=== PATIENT | male | born 1970 | race Caucasian/White ===

== ENCOUNTER 2018-08-07 07:13 | Inpatient (IN) | payer OTHER ==
[~2018-08-07] VITALS: Ht 193 cm; Wt 96.2 kg
[~2018-08-07 07:13] MED LIST: ASPIR 8181 MG PO; HUMULIN R100 UNIT/2 SQ; LIPITOR20 MG PO; LISINOPRIL10 MG PO; PLAVIX75 MG PO
[2018-08-07] MEDS ORDERED: INSULIN REGULAR, HUMAN 100 UNIT/1 ML 3ML VIAL ONE (07:55)
[2018-08-07 08:08] LABS: BASOPHILS % 0.3 % (0.0-1.0); EOSINOPHILS # (AUTO) 0.1 (0.0-0.4); HEMATOCRIT 41.5 % (38.2-49.6); HEMOGLOBIN 14.4 g/dL (14.0-18.0); LYMPHOCYTES # (AUTO) 1.5 (1.0-3.2); LYMPHOCYTES % 13.8 % (18.0-39.1); MEAN CORPUSCULAR HEMOGLOBIN 30.4 pg (28-32); MEAN CORPUSCULAR HGB CONC 34.7 g/dL (31-35); MEAN CORPUSCULAR VOLUME 87.7 fL (81-99); MONOCYTES # (AUTO) 1.1 (0.2-0.8); NEUTROPHILS # (AUTO) 8.2 (2.1-6.9); NEUTROPHILS % 74.5 % (38.7-80.0); PLATELET COUNT 280 x10e3/uL (140-360); RED BLOOD COUNT 4.73 x10e6/uL (4.3-5.7)
[2018-08-07 08:31] LABS: ANION GAP 15.7 mmol/L (8-16); BLOOD UREA NITROGEN 16 mg/dL (7-26); BUN/CREATININE RATIO 21 (6-25); CALCIUM 9.1 mg/dL (8.4-10.2); CARBON DIOXIDE 20 mmol/L (22-29); CHLORIDE 102 mmol/L (98-107); CREATININE, SERUM 0.75 mg/dL (0.72-1.25); EST GLOMERULAR FILTRATION RATE > 60 ML/MIN (60-); GLUCOSE 201 mg/dL (74-118); POTASSIUM 3.7 mmol/L (3.5-5.1); SODIUM 134 mmol/L (136-145)
[2018-08-07] MEDS ORDERED: HYDROGEN PEROXIDE 120 ML BTL ONE (09:23)
[2018-08-07] MEDS ORDERED: CLINDAMYCIN 600MG / 50ML 50 ML IV ONE (09:29)
[2018-08-07] MEDS ORDERED: SODIUM CHLORIDE 0.9% 1000ML 1,000 ML IV SCH (10:16)
[2018-08-07] MEDS ORDERED: ONDANSETRON HCL INJ 2 MG/ML VIAL IV PRN (10:30)
[2018-08-07] MEDS ORDERED: HYDROCODONE/APAP 7.5MG-325MG 1 EA TAB PO PRN (10:30)
[2018-08-07] MEDS ORDERED: HYDROMORPHONE 1MG/1ML INJ IV PRN (10:30)
--- NOTE | 2018-08-07 11:00 | NUR ---
RECD PT FROM RECOVERY VIA STRETCHER AAOX3,PAIN LEVEL 3 TO RT BUTTOCKS,DRSG CD&I.IV INFUSING TO LT HAND 22 GAUGE,SCDS ON ,
--- NOTE | 2018-08-07 11:36 | Operative Report ---
DATE OF PROCEDURE: August 07, 2018 PREOPERATIVE DIAGNOSES 1. Right gluteal abscess. 2. Diabetes mellitus. POSTOPERATIVE DIAGNOSES 1. Right gluteal abscess. 2. Diabetes mellitus. PROCEDURE PERFORMED: Incision and drainage of right gluteal abscess. ESTIMATED BLOOD LOSS: Minimal. DRAINS: 1/4-inch [place] drain. COMPLICATIONS: None. INDICATIONS AND FINDINGS: The patient is a 48-year-old, diabetic male admitted for incision and drainage of a gluteal abscess. The patient noted swelling for several days. He applied some warm compressions without resolution. INTRAOPERATIVE FINDINGS: The patient had a 6 to 7 cm abscess of the right upper medial gluteal area with drainage of foul-smelling, blood-stained pus. Aerobic and anaerobic cultures were taken. The abscess was confined to the gluteus. There was no evidence of communication with the anal region indicating an anorectal origin of the abscess. DESCRIPTION OF PROCEDURE: With the patient lying on the operating table in the supine position, after administration of general endotracheal anesthesia, he was prepped and draped for incision and drainage of the right gluteal area. The patient was placed in the left lateral decubitus position, prepped and draped. An elliptical incision was made in the mid portion of the skin overlying the most fluctuant area of the abscess and the cavity entered. Foul smelling, blood-tinged pus was obtained and drained. After we did that, we explored the cavity and there was no evidence of anorectal origin or communication such as a fistula. We copiously irrigated the cavity with saline and peroxide and then placed a 1/4-inch [place] drain through a stab wound inferior to the previous one in a dependent location and secured it to itself with 3-0 silk and then packed the cavity with 1-inch iodoform gauze. Sterile dressing was applied. The patient tolerated the procedure well and was taken to the recovery room in stable condition. Job#: [id number]
[2018-08-07 11:43] VITALS: BP 118/57
[2018-08-07] MEDS ORDERED: CLINDAMYCIN 600MG / 50ML 50 ML IV SCH (12:00)
[2018-08-07] MEDS: LEVOFLOXACIN 500MG/D5W 100ML 100 ML IV SCH (12:06)
--- NOTE | 2018-08-07 14:20 | NUR ---
Visit made by the Spiritual Care Department Pastoral Visitor, Loreto Bahena. PV provided pastoral presence, prayer, hospitality, and supportive listening. Pastoral Visitor informed pt/family of the scope of Manager Android Services and availability. HAROON BRODERICK Video News Editor Spiritual Care Department O: [phone] Pager: [phone] ([phone] number calling from)
[2018-08-07 15:53] VITALS: BP 134/61
[2018-08-07] MEDS ORDERED: DEXTROSE 50% SYRINGE 50 ML IV PRN (16:15)
[2018-08-07] MEDS: CLINDAMYCIN 600MG / 50ML 50 ML IV SCH ×2 (16:20→21:43)
[2018-08-07] MEDS: INSULIN LISPRO 100 UNIT/1 ML 3ML VIAL SQ SCH ×2 (16:30→21:45)
--- NOTE | 2018-08-07 16:31 | Consultation ---
DATE OF CONSULTATION: August 07, 2018 REASON FOR CONSULTATION: Medical management. HISTORY OF PRESENT ILLNESS: This is a 48-year-old white man who was admitted to [facility] with a right gluteal abscess. The patient was seen by general surgeon, namely Dr. Sami Lakhani, who performed successful incision and drainage of the right gluteal abscess. The drainage was malodorous according to the surgeon. The patient states he has had the abscess on his buttock for at least 6 days. The patient denied any fever or chills, but stated he did not feel well. Blood work done today revealed a white blood cell count of 11,000 with 74% segmented neutrophils. The patient's BUN and creatinine was 16 and 0.75 respectively. The patient's hemoglobin A1c in the emergency room was 11.8 g/dL. The patient admits not taking any medications, including the Tresiva insulin that I prescribed for him a year ago. REVIEW OF SYSTEMS GENERAL: The patient states his weight has been stable. No fever or chills. HEENT: No headaches. No visual changes. CARDIOVASCULAR/RESPIRATORY: The patient states he has a chronic cough. No chest pain or tightness. GI: No nausea, vomiting, diarrhea, or constipation. : States he does urinate frequently. NEUROMUSCULAR: The patient states he had a right buttock abscess last week. ALLERGIES: PENICILLIN. MEDICATIONS: None. SURGICAL HISTORY 1. Vasectomy. 2. 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 3. Arterial stent placement in the bilateral lower extremities. FAMILY HISTORY: Father had diabetes mellitus, but of lung cancer. SOCIAL HISTORY: This man is . He lives with his . He is a heavy tobacco smoker. The patient denies any alcohol use. He is employed as a professor computer science. PHYSICAL EXAMINATION GENERAL: He is awake, alert and looks in distress. Very pleasant and cooperative with exam. He looks older than his stated age. VITALS: Blood pressure is 118/57, pulse 78, respiratory rate 18, temperature 98.6, oxygen saturation 97% on room air. INTEGUMENT: Skin is warm and dry. No pallor or diaphoresis appreciated. HEENT: Anicteric sclerae. Moist mucous membranes. NECK: Supple. CARDIOVASCULAR: Distant heart sounds. Regular rate and rhythm. LUNGS: No rales. No rhonchi or wheezes. ABDOMEN: Benign. EXTREMITIES: The right buttock is dressed. No edema or deformity. NEUROLOGIC: Intact. IMPRESSION 1. Right gluteal abscess. 2. Status post right gluteal abscess incision and drainage. 3. Type 2 diabetes mellitus, uncontrolled. 4. Peripheral arterial disease. 5. Tobacco use. 6. Hyperlipidemia. PLAN 1. Wound care to the right gluteal incised abscess. 2. Follow wound cultures. 3. Intravenous antibiotics. 4. Glucose control. 5. Highly recommend absolute tobacco cessation. I spent 40 minutes in the care of this patient. Job#: [id number] [place]
--- NOTE | 2018-08-07 17:36 | NUR ---
pt up in bed ,denies pain no distress noted,drsg to buttocks cd&i
[2018-08-07] MEDS: HYDROMORPHONE 2MG/ML 2 MG/ML ML IV PRN ×2 (17:45→21:50)
[2018-08-07] MEDS: NICOTINE 21 MG/EA PATCH TOP SCH (19:00)
--- NOTE | 2018-08-07 19:00 | NUR ---
Patient visited in room during nursing rounds. Patient alert and oriented x3. S/P Incision and drainage on right buttock abscess. Surgical dressing with silk tape covering surgical site appearing clean and dry. Piedad drain in place covered by dressing. Nicoderm patch in place. Call valerio within reach. Will monitor closely.
[2018-08-07] MEDS ORDERED: FENTANYL CITRATE/PF 100MCG/2 ML INJ ONE (19:06)
[2018-08-07] MEDS ORDERED: MIDAZOLAM HCL 2 MG/2 ML VIAL ONE (19:06)
[2018-08-07] MEDS ORDERED: PROPOFOL IV EMULSION 10 MG/ML 20 ML VIAL ONE (19:26)
[2018-08-07] MEDS ORDERED: DEXAMETHASONE SOD PHOS INJ 4 MG/ML VIAL ONE (19:26)
[2018-08-07] MEDS ORDERED: SEVOFLURANE INHAL SOLN 250 ML PEN BTL ONE (19:26)
[2018-08-07] MEDS ORDERED: ONDANSETRON HCL INJ 2 MG/ML VIAL ONE (19:26)
[2018-08-07] MEDS ORDERED: LIDOCAINE HCL 2% LOCAL INJ 5 ML SDV VIAL INJ ONE (19:26)
[2018-08-07 20:00] VITALS: BP 117/56
[2018-08-07] MEDS: INSULIN DETEMIR 100 UNIT/ML PEN SQ SCH (21:46)
[2018-08-08] VITALS (7 sets, daily range): BP systolic 122–148; BP diastolic 58–71
[2018-08-08] MEDS: CLINDAMYCIN 600MG / 50ML 50 ML IV SCH ×4 (02:44→21:39)
--- NOTE | 2018-08-08 05:01 | NUR ---
Patient sleeping at this time. IV saline locked. No c/o pain or discomfort at this time. Will continue to monitor.
[2018-08-08 05:35] LABS: BASOPHILS # (AUTO) 0.1 (0.0-0.1); BASOPHILS % 0.7 % (0.0-1.0); EOSINOPHILS # (AUTO) 0.3 (0.0-0.4); EOSINOPHILS % 3.5 % (0.0-6.0); HEMATOCRIT 37.2 % (38.2-49.6); HEMOGLOBIN 12.7 g/dL (14.0-18.0); LYMPHOCYTES # (AUTO) 1.8 (1.0-3.2); MEAN CORPUSCULAR HEMOGLOBIN 30.2 pg (28-32); MEAN CORPUSCULAR HGB CONC 34.1 g/dL (31-35); MEAN CORPUSCULAR VOLUME 88.6 fL (81-99); MONOCYTES # (AUTO) 0.9 (0.2-0.8); MONOCYTES % 11.8 % (4.4-11.3); NEUTROPHILS # (AUTO) 4.2 (2.1-6.9); NEUTROPHILS % 58.4 % (38.7-80.0); PLATELET COUNT 249 x10e3/uL (140-360); RED CELL DISTRIBUTION WIDTH 12.1 % (11.7-14.4)
[2018-08-08 05:51] LABS: ALANINE AMINOTRANSFERASE 9 IU/L (0-55); ALBUMIN 2.4 g/dL (3.5-5.0); ALBUMIN/GLOBULIN RATIO 0.7 (0.8-2.0); ALKALINE PHOSPHATASE 54 IU/L (40-150); ANION GAP 11.4 mmol/L (8-16); BLOOD UREA NITROGEN 14 mg/dL (7-26); BUN/CREATININE RATIO 23 (6-25); CALCIUM 7.9 mg/dL (8.4-10.2); CARBON DIOXIDE 24 mmol/L (22-29); CHLORIDE 101 mmol/L (98-107); CHOL/HDL RATIO 5.7 (3.9-4.7); CHOLESTEROL 131 MD/DL (0-199); CREATININE, SERUM 0.61 mg/dL (0.72-1.25); EST GLOMERULAR FILTRATION RATE > 60 ML/MIN (60-); GLUCOSE 137 mg/dL (74-118); HDL CHOLESTEROL 23 MG/DL (40-60); LDL CHOLESTEROL 86 MG/DL (60-130); POTASSIUM 3.4 mmol/L (3.5-5.1); SODIUM 133 mmol/L (136-145); TRIGLYCERIDES 111 MG/DL (0-149)
--- NOTE | 2018-08-08 06:48 | Diagnostic Imaging Report ---
EXAM: CHEST 2 VIEWS, PA and lateral INDICATION: Smoker COMPARISON: None FINDINGS: LINES/TUBES: None LUNGS: No consolidations or edema. Stable oval lucency in the right upper lateral chest. PLEURA: No effusions or pneumothorax. HEART AND MEDIASTINUM: Normal size and contour. BONES AND SOFT TISSUES: No acute findings. IMPRESSION: No acute thoracic abnormality. Signed by: Dr. Faith Russo M.D. on 08/08/2018 6:45 AM
[2018-08-08] MEDS: INSULIN LISPRO 100 UNIT/1 ML 3ML VIAL SQ SCH ×4 (07:30→21:40)
--- NOTE | 2018-08-08 08:09 | Progress Note ---
DATE: August 08, 2018 SUBJECTIVE: The patient feels fine. The right gluteal pain is significantly decreased after the incision and drainage was done. Reports no chills. OBJECTIVE VITALS: The patient is afebrile. Vital signs are stable. LABORATORY: Reveals a white count now normal at 7.23. Blood sugar today is 137. ASSESSMENT 1. Status post incision and drainage of right large gluteal abscess. 2. Diabetes. PLAN: Continue present care of his diabetes. Continue intravenous antibiotics. Check cultures results when available. Job#: [id number] XENIA ERNST
[2018-08-08] MEDS: NICOTINE 21 MG/EA PATCH TOP SCH (08:49)
[2018-08-08] MEDS: HYDROMORPHONE 2MG/ML 2 MG/ML ML IV PRN (08:50)
[2018-08-08] MEDS ORDERED: POTASSIUM CHLORIDE 10MEQ EA PO ONE (09:15)
[2018-08-08] MEDS: LEVOFLOXACIN 500MG/D5W 100ML 100 ML IV SCH (10:14)
[2018-08-08] MEDS: METFORMIN HCL 500 MG TAB PO SCH (16:43)
--- NOTE | 2018-08-08 19:17 | NUR ---
PATIENT IS IN STABLE CONDITION WITH NO S/S OF RESPIRATORY DISTRESS. NO PAIN VOICED. CALL LIGHT IS WITHIN REACH, INSTRUCTED TO CALL FOR ASSISTANCE NEEDED. REPORT GIVEN TO ONCOMING NURSE.
--- NOTE | 2018-08-08 19:20 | NUR ---
PT IS RESTING IN BED. NO RESPIRATORY DISTRESS NOTED. BED IN LOWEST POSITION, LOCKED, AND CALL LIGHT WITHIN REACH. WILL CONTINUE TO MONITOR.
[2018-08-08] MEDS: INSULIN DETEMIR 100 UNIT/ML PEN SQ SCH (21:40)
[2018-08-09] VITALS (8 sets, daily range): BP systolic 122–142; BP diastolic 64–71
[2018-08-09] MEDS: CLINDAMYCIN 600MG / 50ML 50 ML IV SCH ×4 (02:04→21:20)
[2018-08-09 05:47] LABS: BASOPHILS # (AUTO) 0.1 (0.0-0.1); BASOPHILS % 1.1 % (0.0-1.0); EOSINOPHILS # (AUTO) 0.3 (0.0-0.4); EOSINOPHILS % 5.4 % (0.0-6.0); HEMATOCRIT 41.1 % (38.2-49.6); LYMPHOCYTES # (AUTO) 1.9 (1.0-3.2); LYMPHOCYTES % 35.6 % (18.0-39.1); MEAN CORPUSCULAR HGB CONC 34.1 g/dL (31-35); MONOCYTES # (AUTO) 0.6 (0.2-0.8); MONOCYTES % 10.8 % (4.4-11.3); NEUTROPHILS # (AUTO) 2.5 (2.1-6.9); NEUTROPHILS % 46.4 % (38.7-80.0); PLATELET COUNT 305 x10e3/uL (140-360); RED BLOOD COUNT 4.67 x10e6/uL (4.3-5.7); RED CELL DISTRIBUTION WIDTH 12.1 % (11.7-14.4)
[2018-08-09 06:08] LABS: ALANINE AMINOTRANSFERASE 13 IU/L (0-55); ALBUMIN 2.7 g/dL (3.5-5.0); ALBUMIN/GLOBULIN RATIO 0.8 (0.8-2.0); ALKALINE PHOSPHATASE 53 IU/L (40-150); ANION GAP 10.9 mmol/L (8-16); BLOOD UREA NITROGEN 10 mg/dL (7-26); BUN/CREATININE RATIO 15 (6-25); CALCIUM 9.2 mg/dL (8.4-10.2); CARBON DIOXIDE 24 mmol/L (22-29); CHLORIDE 102 mmol/L (98-107); CREATININE, SERUM 0.67 mg/dL (0.72-1.25); EST GLOMERULAR FILTRATION RATE > 60 ML/MIN (60-); GLUCOSE 127 mg/dL (74-118); POTASSIUM 3.9 mmol/L (3.5-5.1); SODIUM 133 mmol/L (136-145)
--- NOTE | 2018-08-09 07:06 | NUR ---
PATIENT IS ALERT AND IN STABLE CONDITION WITH NO S/S OF RESPIRATORY DISTRESS. NO PAIN VOICED. DRESSING TO RIGHT BUTTOCK AREA IS DRY AND INTACT. CALL LIGHT IS WITHIN REACH, PATIENT INSTRUCTED TO CALL FOR ASSISTANCE NEEDED.
[2018-08-09] MEDS: INSULIN LISPRO 100 UNIT/1 ML 3ML VIAL SQ SCH ×4 (07:30→21:20)
[2018-08-09] MEDS: NICOTINE 21 MG/EA PATCH TOP SCH (08:55)
[2018-08-09] MEDS: METFORMIN HCL 500 MG TAB PO SCH ×2 (09:27→17:02)
[2018-08-09] MEDS: LEVOFLOXACIN 500MG/D5W 100ML 100 ML IV SCH (10:36)
[2018-08-09] MEDS: HYDROMORPHONE 2MG/ML 2 MG/ML ML IV PRN (13:03)
--- NOTE | 2018-08-09 15:16 | NUR ---
IV ANTIBIOTIC INFUSING; PATIENT COMPLETED FIRST SITZ BATH- DRAIN PRESENT, DRY DRESSING AND FOAM TAPE APPLIED.
--- NOTE | 2018-08-09 16:57 | NUR ---
Nutrition Screen Note RD Recommendation for Physician: -Continue ADA diet as ordered -RD provided education on diabetic diet on 08/09. Rec pt to f/u with outpatient CDE for further education and monitoring Plan of Care: RD following, monitoring for tolerance and adequacy, education Nutrition reason for involvement: MD Consult diabetes education Primary Diagnose(s): right gluteal abscess s/p I&D PMH: DM, HLD, PAD Ht: 76in Wt: 210lb BMI: 25.6kg/m2 IBW: 202lb RD Assessment: (08/09) Chart reviewed. Labs and meds reviewed. 48yo M, who is admitted for right gluteal abscess. HbA1c at 11.8%. Tobacco smoker. 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 No GI complains noted. No chewing or swallowing difficulty. RD consulted for diabetic diet education. See below. Current Diet: ADA diet Malnutrition Evaluation (08/09/2018) The patient does not meet criteria for a specified degree of malnutrition at this time. Will re-evaluate at follow-up as appropriate. Diet Education Needs Assessment: Diet education indicated, pt and are agreeable with plan. Nutrition Education Learner(s): pt, Barriers: none Cultural/Language Modifications: No cultural/language modifications noted. Readiness: eager, motivated Method: explanation/ discussion, handout Topics: DM diet (carbohydrate counting, label reading, serving sizes) Understanding/Compliance: good compliance expected, needs reinforcement with outpatient diabetes management, all questions have been answered. Nutrition Care Level: low Signed: Cuca Nazario, MS, RD, LD
--- NOTE | 2018-08-09 17:43 | NUR ---
CASE MANAGEMENT INITIAL ASSESSMENT Plastics Design Engineer to bedside to discuss plan of care with patient/family. CM/SW role and care transitions discussed. Anticipated discharge plan discussed along with duration of care. CM/SW discussed patients right to make decisions in care. CM/SW work hours given. Patient lives: Admit/Transfer: OR POA/Emergency contact: RAGINI JENNIFER [phone] Current/Previous Home Health: N/A PCP/Follow-up Care: DR MERAZ Current/Previous DME: GLU[facility]ER Other Services: NONE Employment Status: WORKS [employer] Areas of Concerns: NONE Referral Needs: N/A Education Needs: WOUND CARE UPON DISCHARGE IMM/TAMAYO given and signed (if applicable): N/A Goal for discharge:HOME AND RETURN TO WORK SOON POSSIBLE CM/SW left business card at the bedside with contact information. Name and number was also written on the patients whiteboard. Patient verbalized understanding of discussion. CM will follow-up with ongoing discharge and transition of care needs.
--- NOTE | 2018-08-09 19:07 | NUR ---
PATIENT IS IN STABLE CONDITION WITH NO S/S OF RESPIRATORY DISTRESS- NO PAIN VOICED. DRESSING TO RIGHT BUTTOCK IS DRY/INTACT AND MESH PANTIES APPLIED. CALL LIGHT IS WITHIN REACH, INSTRUCTED TO CALL FOR ASSISTANCE NEEDED. REPORT GIVEN TO ONCOMING NURSE.
--- NOTE | 2018-08-09 19:11 | NUR ---
PT IS RESTING IN BED. NO RESPIRATORY DISTRESS NOTED. BED IN LOWEST POSITION, LOCKED, AND CALL LIGHT WITHIN REACH. WILL CONTINUE TO MONITOR.
[2018-08-09] MEDS: INSULIN DETEMIR 100 UNIT/ML PEN SQ SCH (21:20)
--- NOTE | 2018-08-09 21:20 | NUR ---
PT REFUSE HIS SITZ BATH. PT STATES THAT HE WILL DO ONE TOMORROW. WILL CONTINUE.
[2018-08-10] VITALS (7 sets, daily range): BP systolic 127–149; BP diastolic 63–82
[2018-08-10] MEDS: CLINDAMYCIN 600MG / 50ML 50 ML IV SCH ×4 (03:11→22:38)
[2018-08-10 06:34] LABS: ALANINE AMINOTRANSFERASE 16 IU/L (0-55); ALBUMIN/GLOBULIN RATIO 0.7 (0.8-2.0); ALKALINE PHOSPHATASE 61 IU/L (40-150); ANION GAP 10.5 mmol/L (8-16); BLOOD UREA NITROGEN 11 mg/dL (7-26); BUN/CREATININE RATIO 14 (6-25); CALCIUM 9.9 mg/dL (8.4-10.2); CARBON DIOXIDE 27 mmol/L (22-29); CHLORIDE 101 mmol/L (98-107); CREATININE, SERUM 0.78 mg/dL (0.72-1.25); EST GLOMERULAR FILTRATION RATE > 60 ML/MIN (60-); GLUCOSE 152 mg/dL (74-118); POTASSIUM 4.5 mmol/L (3.5-5.1); SODIUM 134 mmol/L (136-145)
--- NOTE | 2018-08-10 07:30 | NUR ---
PT UP IN BED NO DISTRESS NOTED ,DENIES PAIN.DRSG TO BUTTOCKS CD&I
[2018-08-10] MEDS: INSULIN LISPRO 100 UNIT/1 ML 3ML VIAL SQ SCH ×4 (08:44→22:40)
[2018-08-10] MEDS: METFORMIN HCL 500 MG TAB PO SCH ×2 (08:44→16:36)
[2018-08-10] MEDS: LEVOFLOXACIN 500MG/D5W 100ML 100 ML IV SCH (10:30)
[2018-08-10] MEDS: NICOTINE 21 MG/EA PATCH TOP SCH (11:44)
--- NOTE | 2018-08-10 13:00 | NUR ---
PT UP AMBULATING IN [place] DENIES PAIN.
--- NOTE | 2018-08-10 18:05 | NUR ---
PT UP AMBULATING IN [place] WITH AMILY ,DENIES PAIN ,NO DSITRESS NTOED.
[2018-08-10] MEDS: INSULIN DETEMIR 100 UNIT/ML PEN SQ SCH (22:40)
[2018-08-11] VITALS: BP 135/62
--- NOTE | 2018-08-11 02:28 | NUR ---
Patient in bed with HOB slightly elevated. AAO x 4. No SOB noted. Bed at low position and locked. Call light within reach. Patient denies of any pain. No acute distress noted. Patient in stable condition, will continue to monitor.
[2018-08-11] MEDS: CLINDAMYCIN 600MG / 50ML 50 ML IV SCH ×2 (03:38→08:18)
[2018-08-11 04:00] VITALS: BP 123/64
[2018-08-11 07:23] VITALS: BP 131/69
[2018-08-11 07:30] VITALS: BP 131/69
[2018-08-11] MEDS: INSULIN LISPRO 100 UNIT/1 ML 3ML VIAL SQ SCH (07:30)
--- NOTE | 2018-08-11 07:30 | NUR ---
PT IN BED SLEEPING NO S/S DISCOMFORT.
[2018-08-11] MEDS: METFORMIN HCL 500 MG TAB PO SCH (08:18)
[2018-08-11] MEDS: NICOTINE 21 MG/EA PATCH TOP SCH (08:18)
[2018-08-11] MEDS: LEVOFLOXACIN 500MG/D5W 100ML 100 ML IV SCH (10:23)
[2018-08-11 11:27] VITALS: BP 122/58
[2018-08-11] MEDS ORDERED: NICOTINE PATCH1 EAC5 EXT (12:42)
[2018-08-11] MEDS ORDERED: JARDIANCE PO (12:44)
[2018-08-11] MEDS ORDERED: METFORMIN HCL500 MG PO (12:45)
--- NOTE | 2018-08-11 13:20 | NUR ---
PT DISCHARGED HOME,IV DCD WITHOUT REDNESS OR SWELLING,PRESCRIPTIONS AND INSTRUCTIONS GIVEN COPY ON CHART.AMBULATED TO AUTO
--- NOTE | 2018-08-11 13:20 | Discharge Summary ---
DISCHARGE DIAGNOSES 1. Right gluteal abscess. 2. Uncontrolled diabetes mellitus. 3. Nicotine abuse. PROCEDURES PERFORMED: On August 07, 2018, incision and drainage of right gluteal abscess. MEDICAL CONSULTATION: Dr. Pako House. HISTORY OF PRESENT ILLNESS: The patient is a 48-year-old male admitted with an abscess of the right gluteal region that was treated at home with packings without resolution of the problem, reason for which he was admitted for drainage of the abscess. The patient's past medical history is significant for diabetes and tobacco use. 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 At this time of admission, he was taking no medicines. The physical examination revealed a 6 to 7 cm right gluteal abscess. Admission laboratory revealed hemoglobin A1c of 11 with the blood sugar of 219, normal electrolytes, white count was 11.4. EKG showed no acute changes. Chest x-ray showed no acute changes. HOSPITALIZATION COURSE: Following admission, the patient underwent incision and drainage of abscess of the right gluteal region on August 07, 2018. Culture sensitivities revealed no growth after 3 days. The patient was treated with Piedad drainage of the abscess cavity. In addition, he was given intravenous antibiotics with clindamycin and Levaquin. Internal medicine consult was obtained with Dr. Pako House who was his primary care doctor and he put him on a sliding scale and controlled his blood sugar that way. The patient was also advised both by Dr. House and myself strongly to quit smoking as he also has history of peripheral vascular disease. During this hospitalization, he was treated with nicotine patch. The patient in addition had his pain controlled with intravenous narcotics. Once the drainage as well as the cellulitis around the abscess resolved, he was discharged home in afebrile and stable condition. He was seen prior to discharge by dietitian who advised him and his on appropriate diabetic diet. The patient was asked to resume his home meds which he had been given prior to admission by me in my office. He was told to followup on Monday and to take care of his wound locally with daily shower twice and he will be followed up with Dr. Pako House in 2 weeks. He was discharged home on insulin coverage as per Dr. House. DANK ABEL MD Job#: [id number] JUAN CARLOS
== END 2018-08-11 13:17 | disposition home or self-care (01) | DRG 603 ==
LOC: OR 07:13 → PACU V 10:22 → MED/SURG3 10:52
PROVIDERS: ADMIT Surgery; ATTEND Surgery
PROC: 0Y900ZX Drainage of Right Buttock, Open Approach, Diagnostic (ICD-10-PCS; principal; 2018-08-07 09:36)
DX: L02.31 Cutaneous abscess of buttock (principal); L03.317 Cellulitis of buttock; E11.40 Type 2 diabetes mellitus with diabetic neuropathy, unspecified; E11.51 Type 2 diabetes mellitus with diabetic peripheral angiopathy without gangrene; E11.65 Type 2 diabetes mellitus with hyperglycemia; E78.5 Hyperlipidemia, unspecified; F17.200 Nicotine dependence, unspecified, uncomplicated; Z79.84 Long term (current) use of oral hypoglycemic drugs; Z85.47 Personal history of malignant neoplasm of testis; Z91.14 Patient's other noncompliance with medication regimen; Z95.820 Peripheral vascular angioplasty status with implants and grafts; Z88.0 Allergy status to penicillin
CPT/HCPCS: 36415; 71046; 80048; 80053; 80061; 82948; 83036; 85025; 87071; 87075; 87205; 93005; J1100; J1956; J2001; J2250; J2405; J7030